=== PATIENT | male | born 1970 | race Caucasian/White ===

== ENCOUNTER 2022-05-30 08:22 | Outpatient (CLI) | payer BC, OTHER, SELFPAY ==
[2022-05-30 13:35] LABS: Basophils Percent Auto 0.5 % (0.0-3.0); Eosinophils Percent Auto 0.5 % (0.0-7.0); Hematocrit 44.3 % (37.0-53.0); Hemoglobin* 14.6 gm/dL (13.5-17.5); Lymphocytes Percent Auto 32.9 % (20-44); Mean Corpuscular HGB Conc 33 gm/dL (32-36); Mean Corpuscular Hemoglobin 32 pg (26-34); Mean Corpuscular Volume 97 fL (80-100); Neutrophils Percent Auto 58.1 % (42.0-72.0); Platelet Count* 198 K/uL (140-440); RDW Coefficient of Variation % 13.4 % (11.5-15.5); Red Blood Count 4.56 m/uL (4.30-5.90); White Blood Count* 3.74 K/uL (4.50-11.00)
[2022-05-30 13:42] LABS: Slide Review Reflex No
[2022-05-30 14:10] LABS: Albumin* 3.8 g/dL (3.3-5.0)
[2022-05-30 14:11] LABS: Chloride* 107 mmol/L (96-114); Potassium* 4.5 mmol/L (3.6-5.1); Sodium* 140 mmol/L (135-149)
[2022-05-30 14:13] LABS: Alkaline Phosphatase* 67 U/L (40-150); Aspartate Amino Transferase* 53 U/L (12-35); Bilirubin Total* 0.5 mg/dL (0.1-1.5); Blood Urea Nitrogen* 11 mg/dL (7-30); Carbon Dioxide* 27 mmol/L (20-32); Cholesterol* 138 mg/dL (90-199); Creatinine* 0.8 mg/dL (0.5-1.5); Estimated Glomerular Filt Rate 107 ml/min; Total Protein* 6.2 g/dL (6.0-8.3)
[2022-05-30 14:14] LABS: Alanine Aminotransferase* 38 U/L (4-50); Calcium* 9.1 mg/dL (8.4-10.6); Glucose* 88 mg/dL (60-115); HDL Cholesterol* 105 mg/dL (>=40); LDL Cholesterol Calculated -3 mg/dL (<100); Triglycerides* 181 mg/dL (40-149)
[2022-05-30 14:41] LABS: Ferritin* 52.9 ng/mL (17.9-464.0)
[2022-05-30 15:02] LABS: Vitamin B12* 227 pg/mL (243-894)
[2022-06-02 12:12] LABS: Vitamin A (Retinol) 0.78 mg/L (0.30-1.20)
== END 2022-05-30 08:23 | disposition home or self-care (01) ==
PROVIDERS: PCP Nurse Practitioner Family; Visit Provider Nurse Practitioner Family
DX: Z00.00 Encounter for general adult medical examination without abnormal findings (principal); E78.5 Hyperlipidemia, unspecified; I10 Essential (primary) hypertension; F90.9 Attention-deficit hyperactivity disorder, unspecified type; I25.10 Atherosclerotic heart disease of native coronary artery without angina pectoris; Z12.5 Encounter for screening for malignant neoplasm of prostate; Z98.84 Bariatric surgery status; R19.7 Diarrhea, unspecified
CPT/HCPCS: 80053; 80061; 82525; 82607; 82728; 82747; 83735; 84153; 84443; 84446; 84590; 84597; 84630; 85025

== ENCOUNTER 2022-07-23 09:41 | Outpatient (CLI) | payer OTHER, SELFPAY ==
--- NOTE | 2022-07-23 06:31 | W.ANESCHARGE ---
Anesthesia Charges Start Date/Time Anesthesia Start Date: 07/23/22 Anesthesia Start Time: 10:17 Stop Date/Time Anesthesia Stop Date: 07/23/22 Anesthesia Stop Time: 11:00
--- NOTE | 2022-07-23 06:31 | PM.ANHP ---
HPI - Pre-Anesthesia History of Present Illness Time Seen by Provider: 10:11 Date Seen: 07/23/22 Date of service: 07/23/22 Reason for visit: colonoscopy Source: patient and old records reviewed Review of Systems Status of ROS Reports: 10 or more systems reviewed and unremarkable except as noted in History and below [facility] Medical History (Updated 07/23/22 @ 10:12 by Pedro Luis Jama MD) History of deep vein thrombosis (DVT) of lower extremity ?Z86.718 - Personal history of other venous thrombosis and embolism (ICD-10) Surgical History (Updated 05/30/22 @ 08:23 by Lena Brewer APRN, [employer]) History of right knee surgery ?Z98.890 - Other specified postprocedural states (ICD-10) History of gastric bypass ?Z98.84 - Bariatric surgery status (ICD-10) History of coronary artery stent placement ?Z95.5 - Presence of coronary angioplasty implant and graft (ICD-10) History of cholecystectomy ?Z90.49 - Acquired absence of other specified parts of digestive tract (ICD-10) Family History (Updated 05/27/22 @ 15:53 by Libby Nunez) Other Bipolar disorder High blood pressure Schizophrenia Social History (Updated 06/06/22 @ 05:14 by Lena Brewer APRN, [employer]) Narrative: Single. 2 children. Exercises formally. Alcohol 10 servings per week. No illicit drug use. Former smoker. Smoking Status: Former smoker Little interest or pleasure in doing things: not at all Feeling down, depressed, or hopeless: not at all Meds Home Medications and Allergies Home Medications Medication Instructions Recorded Confirmed Type aspirin 81 mg tablet,delayed 81 mg PO 05/30/22 05/30/22 History release Allergies Allergy/AdvReac Type Severity Reaction Status Date / Time No Known Allergies Allergy Unknown Verified 05/30/22 07:51 Exam Const Documenting provider has reviewed patient's vital signs: yes Common normals: no apparent distress, oriented x3, healthy appearing, alert and well nourished General appearance: cooperative and comfortable Orientation/consciousness: Yes awake HENMT Common normals: normocephalic Head and scalp: normocephalic Neck & C-Spine Common normals: full ROM Chest Chest: symmetrical chest wall rise Resp Common normals: normal respiratory effort, no retractions, no use of accessory muscles and clear to auscultation bilaterally Auscultation: clear to auscultation bilaterally Cardio Common normals: regular rate, regular rhythm, S1 normal heart sound, S2 normal heart sound and no murmurs Rate: regular rate Rhythm: regular rhythm Heart sounds: S1 normal and S2 normal Neuro Common normals: oriented x3 Sensorium/orientation: awake and alert Assessment and Plan Assessment and plan (1) Colonoscopy planned: Status: Acute Plan ok to proceed with sedation for colonoscopy
--- NOTE | 2022-07-23 10:58 | W.ANESCHARGE ---
Anesthesia Charges Start Date/Time Anesthesia Start Date: 07/23/22 Anesthesia Start Time: 10:17 Stop Date/Time Anesthesia Stop Date: 07/23/22 Anesthesia Stop Time: 11:00
== END 2022-07-23 09:42 | disposition home or self-care (01) ==
LOC: OP CLINIC 09:41
PROVIDERS: PCP Nurse Practitioner Family; Visit Provider Surgery
DX: Z12.11 Encounter for screening for malignant neoplasm of colon (principal); K63.89 Other specified diseases of intestine; K63.5 Polyp of colon
CPT/HCPCS: 00811; 45380; 45385; 88305; J2704